=== PATIENT | female | born 1930 | race Caucasian/White ===

== ENCOUNTER 2018-04-24 07:20 | Inpatient (IN) | payer OTHER ==
[2018-04-24 08:32] LABS: ADD MAN DIFF? NO
[2018-04-24 08:36] LABS: WHITE BLOOD COUNT 4.9 10^3/ul (4.8-10.8)
[2018-04-24 08:36] LABS: BASOPHILS % 0.4 % (0.0-2.0); EOSINOPHILS # 0.1 10^3/ul (0.0-0.5); HEMOGLOBIN 13.3 g/dl (12.0-16.0); LYMPHOCYTES # 1.4 10^3/ul (0.8-2.9); LYMPHOCYTES % 28.7 % (15.0-51.0); MEAN CORPUSCULAR HEMOGLOBIN 29.7 pg (29.0-33.0); MEAN CORPUSCULAR HGB CONC 33.3 g/dl (32.0-37.0); MEAN CORPUSCULAR VOLUME 89.3 fl (82.0-101.0); MEAN PLATELET VOLUME 8.1 fl (7.4-10.4); MONOCYTE # 0.4 10^3/ul (0.3-0.9); MONOCYTES % 8.8 % (0.0-11.0); NEUTROPHIL # 2.9 10^3/ul (1.6-7.5); NEUTROPHILS % 59.7 % (39.0-77.0); PLATELET COUNT 212 10^3/UL (140-415); RED BLOOD COUNT 4.48 10^6/ul (4.20-5.40); RED CELL DISTRIBUTION WIDTH 13.4 % (11.5-14.5)
[2018-04-24 08:55] LABS: INR 0.87; PROTIME 11.9 Sec (11.9-14.9); PT RATIO 0.9
[2018-04-24 08:56] LABS: PARTIAL THROMBOPLASTIN TIME 29.7 Sec (23.0-35.0)
[2018-04-24 08:59] LABS: ALANINE AMINOTRANSFERASE 9 IU/L (13-69); ALBUMIN 4.1 g/dl (3.3-4.9); ALBUMIN/GLOBULIN RATIO 1.13; ALKALINE PHOSPHATASE 66 IU/L (42-121); ANION GAP 9 (5-13); ASPARTATE AMINO TRANSFERASE 23 IU/L (15-46); BILIRUBIN,INDIRECT 0.5 mg/dl (0-1.1); BILIRUBIN,TOTAL 0.5 mg/dl (0.2-1.3); BLOOD UREA NITROGEN 18 mg/dl (7-20); CALCIUM 9.3 mg/dl (8.4-10.2); CARBON DIOXIDE 28 mmol/L (21-31); CHLORIDE 105 mmol/L (97-110); CREATININE 0.77 mg/dl (0.44-1.00); GLUCOSE 113 mg/dl (70-220); POTASSIUM 4.8 mmol/L (3.5-5.1); SODIUM 142 mmol/L (135-144); TOTAL PROTEIN 7.7 g/dl (6.1-8.1)
[2018-04-24] MEDS ORDERED: HEPARIN 1000 UNITS/ML 10 ML INJ (10:43)
[2018-04-24] MEDS ORDERED: LIDOCAINE 1% (MDV) 20 ML INJ (10:43)
[2018-04-24] MEDS ORDERED: IODIXANOL LOCM 100 ML BTL (10:43)
[2018-04-24] MEDS ORDERED: FENTAnyl 50 MCG/ML VIAL (10:44)
[2018-04-24] MEDS ORDERED: MIDAZOLAM 1 MG/ML 2 ML INJ (10:44)
[2018-04-24] MEDS ORDERED: VERAPAMIL 5 MG INJ (10:45)
[2018-04-24] MEDS ORDERED: NITROGLYCERIN (IC) 100 MCG/ML INJ (10:45)
[2018-04-24] MEDS ORDERED: SOD CHLORIDE 0.9% 500 ML (11:46)
[2018-04-24] MEDS ORDERED: ACETAMINOPHEN 325 MG TAB PO (16:30)
[2018-04-24] MEDS ORDERED: HYDROCODONE/APAP (5/325) TAB PO (17:00)
[2018-04-24] MEDS: CLOPIDOGREL 75 MG TAB PO (18:43)
[2018-04-24] MEDS: traZODone 100 MG TAB PO (20:58)
[2018-04-24] MEDS: ATORVASTATIN 40 MG TAB PO (20:58)
[2018-04-24] MEDS: METOPROLOL 25 MG TAB PO (20:59)
[2018-04-25 05:03] LABS: ADD MAN DIFF? NO
[2018-04-25 05:13] LABS: WHITE BLOOD COUNT 6.5 10^3/ul (4.8-10.8)
[2018-04-25 05:13] LABS: BASOPHILS % 0.5 % (0.0-2.0); EOSINOPHILS # 0.1 10^3/ul (0.0-0.5); EOSINOPHILS % 2.2 % (0.0-7.0); HEMATOCRIT 39.9 % (37.0-47.0); HEMOGLOBIN 13.5 g/dl (12.0-16.0); LYMPHOCYTES # 1.9 10^3/ul (0.8-2.9); LYMPHOCYTES % 29.8 % (15.0-51.0); MEAN CORPUSCULAR HGB CONC 33.8 g/dl (32.0-37.0); MEAN CORPUSCULAR VOLUME 88.7 fl (82.0-101.0); MEAN PLATELET VOLUME 8.4 fl (7.4-10.4); MONOCYTE # 0.6 10^3/ul (0.3-0.9); MONOCYTES % 9.3 % (0.0-11.0); NEUTROPHIL # 3.8 10^3/ul (1.6-7.5); NEUTROPHILS % 57.9 % (39.0-77.0); PLATELET COUNT 204 10^3/UL (140-415); RED CELL DISTRIBUTION WIDTH 13.5 % (11.5-14.5)
[2018-04-25 05:26] LABS: ANION GAP 4 (5-13); BLOOD UREA NITROGEN 17 mg/dl (7-20); CALCIUM 9.2 mg/dl (8.4-10.2); CARBON DIOXIDE 28 mmol/L (21-31); CHLORIDE 108 mmol/L (97-110); CREATININE 0.81 mg/dl (0.44-1.00); GLUCOSE 112 mg/dl (70-220); POTASSIUM 4.6 mmol/L (3.5-5.1); SODIUM 140 mmol/L (135-144)
[2018-04-25 05:26] LABS: MAGNESIUM 2.1 mg/dl (1.7-2.5)
[2018-04-25] MEDS: PANTOPRAZOLE (EC) 40 MG TAB PO (06:01)
[2018-04-25] MEDS: CLOPIDOGREL 75 MG TAB PO (08:28)
[2018-04-25] MEDS: ASPIRIN 81 MG TAB PO (08:28)
[2018-04-25] MEDS: METOPROLOL 25 MG TAB PO ×2 (08:29→21:12)
[2018-04-25] MEDS ORDERED: NON-FORMULARY/PATIENT OWN MED (Omeprazole* 20 MG) PO (09:00)
[2018-04-25] MEDS ORDERED: LIDOCAINE 1% (MDV) 20 ML INJ (12:17)
[2018-04-25] MEDS ORDERED: IODIXANOL LOCM 100 ML BTL (12:17)
[2018-04-25] MEDS ORDERED: HEPARIN 1000 UNITS/ML 10 ML INJ (12:17)
[2018-04-25] MEDS ORDERED: FENTAnyl 50 MCG/ML VIAL (12:18)
[2018-04-25] MEDS ORDERED: VERAPAMIL 5 MG INJ (12:18)
[2018-04-25] MEDS ORDERED: MIDAZOLAM 1 MG/ML 2 ML INJ (12:18)
[2018-04-25] MEDS ORDERED: NITROGLYCERIN (IC) 100 MCG/ML INJ (12:19)
[2018-04-25] MEDS ORDERED: SOD CHLORIDE 0.9% 500 ML (12:22)
[2018-04-25] MEDS ORDERED: IOHEXOL 350MG/ML 50 ML BTL (13:08)
[2018-04-25] MEDS: ATORVASTATIN 40 MG TAB PO (21:12)
[2018-04-25] MEDS: traZODone 100 MG TAB PO (21:13)
[2018-04-26 05:11] LABS: ADD MAN DIFF? NO
[2018-04-26 05:27] LABS: BASOPHILS % 0.3 % (0.0-2.0); EOSINOPHILS % 0.4 % (0.0-7.0); HEMATOCRIT 39.1 % (37.0-47.0); HEMOGLOBIN 13.6 g/dl (12.0-16.0); LYMPHOCYTES # 1.8 10^3/ul (0.8-2.9); LYMPHOCYTES % 17.9 % (15.0-51.0); MEAN CORPUSCULAR HEMOGLOBIN 30.6 pg (29.0-33.0); MEAN CORPUSCULAR HGB CONC 34.8 g/dl (32.0-37.0); MEAN CORPUSCULAR VOLUME 88.1 fl (82.0-101.0); MEAN PLATELET VOLUME 8.5 fl (7.4-10.4); MONOCYTE # 0.8 10^3/ul (0.3-0.9); MONOCYTES % 7.9 % (0.0-11.0); NEUTROPHIL # 7.3 10^3/ul (1.6-7.5); PLATELET COUNT 210 10^3/UL (140-415); RED BLOOD COUNT 4.44 10^6/ul (4.20-5.40); RED CELL DISTRIBUTION WIDTH 13.2 % (11.5-14.5)
[2018-04-26] MEDS: PANTOPRAZOLE (EC) 40 MG TAB PO (05:51)
[2018-04-26 06:02] LABS: ANION GAP 10 (5-13); BLOOD UREA NITROGEN 21 mg/dl (7-20); CALCIUM 9.3 mg/dl (8.4-10.2); CARBON DIOXIDE 24 mmol/L (21-31); CHLORIDE 105 mmol/L (97-110); CREATININE 0.85 mg/dl (0.44-1.00); GLUCOSE 126 mg/dl (70-220); POTASSIUM 4.3 mmol/L (3.5-5.1); SODIUM 139 mmol/L (135-144)
[2018-04-26] MEDS: ASPIRIN 81 MG TAB PO (08:30)
[2018-04-26] MEDS: CLOPIDOGREL 75 MG TAB PO (08:30)
[2018-04-26] MEDS: METOPROLOL 25 MG TAB PO (08:31)
== END 2018-04-26 13:30 | disposition home health service (06) | DRG 247 ==
LOC: CCL 07:20 → ICU 04-26 00:02 → SDS 07:21 → CCL 13:22 → REC 13:22 → ICU 16:05
PROC: 4A023N7 Measurement of Cardiac Sampling and Pressure, Left Heart, Percutaneous Approach (ICD-10-PCS; 2018-04-24 09:30)
PROC: B211YZZ Fluoroscopy of Multiple Coronary Arteries using Other Contrast (ICD-10-PCS; 2018-04-24 09:30)
PROC: 027135Z Dilation of Coronary Artery, Two Arteries with Two Drug-eluting Intraluminal Devices, Percutaneous Approach (ICD-10-PCS; principal; 2018-04-24 10:38)
PROC: B211YZZ Fluoroscopy of Multiple Coronary Arteries using Other Contrast (ICD-10-PCS; 2018-04-24 10:38)
DX: I25.10 Atherosclerotic heart disease of native coronary artery without angina pectoris (principal); I35.0 Nonrheumatic aortic (valve) stenosis; I10 Essential (primary) hypertension; E78.5 Hyperlipidemia, unspecified; G47.00 Insomnia, unspecified; G89.29 Other chronic pain; M54.5 Low back pain
CPT/HCPCS: 71045; 80048; 80053; 83735; 85025; 85610; 85730; 93005; 93306; 93454